=== PATIENT | male | born 1955 | race Caucasian/White ===

== ENCOUNTER 2016-08-15 10:37 | Day surgery (SDC) | payer OTHER ==
[~2016-08-15] VITALS: Ht 170.2 cm; Wt 96.2 kg
[~2016-08-15 10:37] MED LIST: ASPIRIN81 M2 PO; BENTYL20 MG PO; BUPROPION XL150 MG PO; COLACE100 MG PO; LIORESAL10 MG PO; LIPITOR40 MG PO; LISINOPRIL20 MG PO; NORVASC10 MG PO; PERCOCET 5/31 TABLET PO; PLAVIX75 MG PO; PRILOSEC20 MG PO
== END 2016-08-15 11:59 | disposition home or self-care (01) ==
LOC: PAIN 10:37 → SDC 11:15 → PAIN 11:59
DX: M47.816 Spondylosis without myelopathy or radiculopathy, lumbar region (principal); M54.5 Low back pain; G89.29 Other chronic pain; I10 Essential (primary) hypertension; M47.814 Spondylosis without myelopathy or radiculopathy, thoracic region; M62.838 Other muscle spasm; K21.9 Gastro-esophageal reflux disease without esophagitis; Z87.891 Personal history of nicotine dependence; Z79.82 Long term (current) use of aspirin; Z79.02 Long term (current) use of antithrombotics/antiplatelets; Z79.891 Long term (current) use of opiate analgesic
CPT/HCPCS: J1030; J2250; J3010; S0020

== ENCOUNTER 2016-08-23 09:44 | Day surgery (SDC) | payer OTHER ==
[~2016-08-23] VITALS: Ht 170.2 cm; Wt 96.2 kg
== END 2016-08-23 11:53 | disposition home or self-care (01) ==
LOC: PAIN 09:44 → SDC 10:15 → PAIN 10:15
DX: M47.816 Spondylosis without myelopathy or radiculopathy, lumbar region (principal); M54.5 Low back pain; G89.29 Other chronic pain; M47.814 Spondylosis without myelopathy or radiculopathy, thoracic region; M62.838 Other muscle spasm; I10 Essential (primary) hypertension; E78.5 Hyperlipidemia, unspecified; K21.9 Gastro-esophageal reflux disease without esophagitis; Z87.891 Personal history of nicotine dependence; Z79.02 Long term (current) use of antithrombotics/antiplatelets; Z79.82 Long term (current) use of aspirin; Z79.891 Long term (current) use of opiate analgesic
CPT/HCPCS: J1030; J2250; J3010; S0020

== ENCOUNTER 2016-12-08 06:59 | Day surgery (SDC) | payer OTHER ==
[~2016-12-08] VITALS: Ht 170.2 cm; Wt 96.2 kg
[~2016-12-08 06:59] MED LIST changes: +LITE COAT ASPI325 M1 PO
== END 2016-12-08 08:58 | disposition home or self-care (01) ==
LOC: PAIN 06:59 → SDC 07:30 → PAIN 07:30
DX: M47.816 Spondylosis without myelopathy or radiculopathy, lumbar region (principal); M54.5 Low back pain; G89.29 Other chronic pain; M25.561 Pain in right knee; M25.562 Pain in left knee; I10 Essential (primary) hypertension; K21.9 Gastro-esophageal reflux disease without esophagitis; I73.9 Peripheral vascular disease, unspecified; Z87.891 Personal history of nicotine dependence; Z79.82 Long term (current) use of aspirin; Z79.891 Long term (current) use of opiate analgesic
CPT/HCPCS: J1030; J2250; J3010; S0020

== ENCOUNTER 2016-12-15 07:00 | Day surgery (SDC) | payer OTHER ==
[~2016-12-15] VITALS: Ht 170.2 cm; Wt 96.2 kg
[~2016-12-15 07:00] MED LIST changes: -ASPIRIN81 M2 PO
== END 2016-12-15 09:00 | disposition home or self-care (01) ==
LOC: PAIN 07:00 → SDC 07:30 → PAIN 07:30
DX: M47.816 Spondylosis without myelopathy or radiculopathy, lumbar region (principal); M54.5 Low back pain; G89.29 Other chronic pain; I10 Essential (primary) hypertension; Z87.891 Personal history of nicotine dependence; Z79.82 Long term (current) use of aspirin; Z79.891 Long term (current) use of opiate analgesic; M47.814 Spondylosis without myelopathy or radiculopathy, thoracic region
CPT/HCPCS: J1030; J1885; J2250; J3010; S0020

== ENCOUNTER 2017-05-23 11:37 | Day surgery (SDC) | payer OTHER ==
[~2017-05-23] VITALS: Ht 170.2 cm; Wt 93.4 kg
[~2017-05-23 11:37] MED LIST changes: -LIPITOR40 MG PO; +LIPITOR80 MG PO
== END 2017-05-23 13:15 | disposition home or self-care (01) ==
LOC: PAIN 11:37
DX: M53.3 Sacrococcygeal disorders, not elsewhere classified (principal); M46.1 Sacroiliitis, not elsewhere classified; G89.29 Other chronic pain; M47.816 Spondylosis without myelopathy or radiculopathy, lumbar region; M54.5 Low back pain; I10 Essential (primary) hypertension; E78.5 Hyperlipidemia, unspecified; I73.9 Peripheral vascular disease, unspecified; Z87.891 Personal history of nicotine dependence; Z79.82 Long term (current) use of aspirin; Z79.891 Long term (current) use of opiate analgesic
CPT/HCPCS: J1030; J2250; S0020